=== PATIENT | female | born 1995 | race Caucasian/White ===

== ENCOUNTER 2017-12-19 18:20 | Observation (INO) | payer BC, OTHER ==
[2017-12-19 19:21] VITALS: BMI 26.9
[2017-12-19 19:25] LABS: #Basophils 0.1 thou/uL (0.0-0.2); #Eosinphils 0.1 thou/uL (0.0-0.7); #Lymphocytes 3.5 thou/uL (1.20-3.40); #Neutrophils 10.7 thou/uL (1.40-6.50); %Basophils 0.6 % (0.0-1.0); %Eosinophils 0.6 % (0.0-10.0); %Lymphocytes 22.9 % (21.0-51.0); %Monocytes 6.6 % (0.0-10.0); %Neutrophils 69.2 % (42.0-75.0); Hemoglobin 11.6 g/dL (12.0-16.0); Mean Corpuscular Volume 88.5 fl (81.0-99.0); Mean Platelet Volume 8.6 fL (7.4-10.4); Platelet Count 207 thou/uL (130-400); Red Blood Cell (RBC) Count 3.73 mill/uL (4.20-5.40); White Blood Cell (WBC) Count 15.4 thou/uL (4.8-10.8)
[2017-12-19 19:43] LABS: Bilirubin Negative (Negative); Blood, Urine Negative (Negative); Clarity CLEAR (Clear); Glucose, Urine (Dipstick) Negative (Negative); Leukocyte Negative (Negative); Nitrite Negative (Negative); Protein, Urine (Dipstick) Negative (Neg-Trace); Urobilinogen 0.2 mg/dL (0.2-1.0); pH, Urine 5.5 (5.0-9.0)
[2017-12-19 19:45] LABS: Bacteria/HPF None Seen HPF (None Seen); Hyaline Casts/LPF 0-3 HYALINE CAST LPF (0-3 Hyaline); RBC/HPF None Seen HPF (0-3); Squamous Epithelial 0-3 HPF (0-3); WBC/HPF 0-3 HPF (0-3)
--- NOTE | 2017-12-19 22:01 | MRI ---
PRELIMINARY REPORT BY DR. VASQUEZ: MRI ABDOMEN NONCONTRAST DATE: 12/19/2017 TIME: 9:11 p.m. HISTORY: A 22-year-old female at 21 weeks' gestation with severe right lower quadrant abdominal pain and tenderness, and leukocytosis. Suspected appendicitis. FINDINGS: The study did not include the pelvis. There is a second trimester intrauterine gestation, with the f etus in breech lie, with the spine to the maternal right. I cannot distinguish loops of ileum from potentially dilated appendix adjacent to the cecum. There is mild bilateral hydronephrosis, rig ht greater than left, presumably representing hydronephrosis of . No small bowel dilation. IMPRESSION: 1. I cannot identify the appendix, and therefore, I cannot confirm or exclude acute appendicitis. 2. A final report will be issued, as an addendum to this report, by another radiologist, tomorrow jany loyola. POS: [facility]
[2017-12-19] MEDS: Acetaminophen 325 MG TAB PO PRN (22:20)
[2017-12-20 06:02] LABS: #Basophils 0.1 thou/uL (0.0-0.2); #Eosinphils 0.1 thou/uL (0.0-0.7); #Lymphocytes 3.9 thou/uL (1.20-3.40); #Neutrophils 9.1 thou/uL (1.40-6.50); %Basophils 0.8 % (0.0-1.0); %Eosinophils 0.7 % (0.0-10.0); %Lymphocytes 27.3 % (21.0-51.0); %Monocytes 6.7 % (0.0-10.0); %Neutrophils 64.5 % (42.0-75.0); Hemoglobin 10.8 g/dL (12.0-16.0); Mean Corpuscular HGB CONC 34.9 g/dL (32.0-36.0); Mean Corpuscular Hemoglobin 31.3 pg (27.0-31.0); Mean Corpuscular Volume 89.8 fl (81.0-99.0); Mean Platelet Volume 9.3 fL (7.4-10.4); Platelet Count 179 thou/uL (130-400); Red Blood Cell (RBC) Count 3.44 mill/uL (4.20-5.40); White Blood Cell (WBC) Count 14.1 thou/uL (4.8-10.8)
[2017-12-20 06:06] LABS: Anion Gap 10 mmol/L (10-20); BUN (Urea Nitrogen) 7 mg/dL (7.0-18.7); Calc. Creatinine Clearance 162 mL/min (70-130); Calcium 8.7 mg/dL (7.8-10.44); Carbon Dioxide 24 mmol/L (22-29); Chloride 107 mmol/L (98-107); Estimated GFR-MDRD Greater than 90; Glucose 78 mg/dL (70-105); Potassium 3.5 mmol/L (3.5-5.1); Sodium 137 mmol/L (136-145)
--- NOTE | 2017-12-20 08:12 | HP ---
OBSERVATION ADMISSION NOTE DATE OF SERVICE: 12/19/2017 TIME OF SERVICE: 2145 hours. REASON FOR ADMISSION: Abdominal pain at 21 weeks gestation right lower quadrant suspicious for appen dicitis. HISTORY OF PRESENT ILLNESS: Ms. Sims is a 22-year-old 2, para [address] Thompson at [facility]. She is 21 weeks gestation by stated ANABELA. She reports right lower quadran t pain today that radiates to the back. She has mild anorexia, no nausea or vomiting. She denies fe mary. She denies dysuria. She denies vaginal discharge. 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 PAST MEDICAL HISTORY: C. difficile, scoliosis and early macular degeneration. PAST SURGICAL HISTORY: Significant for laser macular degeneration surgery. ALLERGIES: None. MEDICATIONS: vitamins. SOCIAL HISTORY: Denies tobacco, alcohol, or drug use. FAMILY HISTORY: Noncontributory. REVIEW OF SYSTEMS: Noncontributory. PHYSICAL EXAMINATION: VITAL SIGNS: Temperature 98.5, pulse 83, blood pressure 119/73. HEENT: Within normal limits. LUNGS: Clear to auscultation bilaterally. HEART: Regular rhythm. ABDOMEN: Has bowel sounds in all 4 quadrants. She has discomfort to palpation in the right lower qu adrant and it is fairly point tender. She does not have CVA tenderness. EXTREMITIES: Without clubbing, cyanosis or edema. PELVIC: Vulva is without lesions. Vagina is without discharge. Cervix is closed, long, and high. LABORATORY STUDIES: Cath UA is negative. CBC reveals a white count of 15.4 with 69% neutrophils, 22 % lymphs. MRA of the abdomen was performed. Discussion with radiologist he could not definitively l ocate the appendix and could not rule in or rule out appendicitis. IMPRESSION: Right lower quadrant pain at 21 weeks gestation, suspect differential includes early april endicitis versus round ligament pain. PLAN: We will place the patient in observation and watched overnight, repeat her CBC in the morning and follow serial exams. Plan was discussed with her private OB, Dr. Thompson. She agrees with this plan and will see the patient in the a.m.
[2017-12-20 09:06] LABS: ALT (SGPT) 7 U/L (8-55); AST (SGOT) 11 U/L (5-34); Albumin 3.1 g/dL (3.5-5.0); Alkaline Phosphatase 75 U/L (40-150); Bilirubin, Direct 0.1 mg/dL (0.1-0.3); Bilirubin, Total 0.4 mg/dL (0.2-1.2); Protein, Total 5.8 g/dL (6.0-8.3)
[2017-12-20] MEDS: Acetaminophen 325 MG TAB PO PRN (09:12)
[2017-12-20] MEDS: Lactated Ringer's 1,000 ML IV SCH (09:30)
[2017-12-20] MEDS: Fentanyl 100 MCG/2 ML VIAL SLOW IVP PRN ×2 (09:31→11:38)
--- NOTE | 2017-12-20 09:33 | PRG ---
DATE OF SERVICE: 12/20/2017 TIME OF VISIT: 0830 SUBJECTIVE: The patient reports overnight has had continued severe right lower quadrant pain, consta nt stabbing sensation with radiation to the right flank with some tingling in there. S She feels naus eous, decreased appetite, feels very cold. She has not had a fever and has not vomited. She does fee l movement. She denies any contractions, vaginal bleeding, leakage of fluid. OBJECTIVE: VITAL SIGNS: Temperature max 98.2, pulse 78, respirations 16, pulse ox 100% on room air, blood press ure 97/62. GENERAL: No acute distress. She is wincing in pain and tearful. HEART: Regular rate and rhythm. LUNGS: Clear to auscultation bilaterally. ABDOMEN: Soft and nondistended. Significant tenderness in the right lower quadrant. The fundus is nontender. There are no palpable contractions or masses. The tenderness is more pronounced in the r ight lower back. There is no CVA tenderness bilaterally. There is voluntary guarding. No rebound. EXTREMITIES: No edema, cyanosis or clubbing. LABORATORY DATA: White count 14.1, hemoglobin 10.8, hematocrit 30.9, platelets are 179, slight left shift. Chemistries are normal. LFTs are normal. UA was entirely negative. ASSESSMENT AND PLAN: A 22-year-old G1, P0 at 21 weeks and 4 days with acute onset right lower quadra nt pain of uncertain etiology. There is no evidence of obstetrical reasons for this pain. Her urine is entirely negative essentially ruling out kidney stones and pyelo. Urine culture is pending at th is time. The appendix was evaluated by an abdominal MRI and was not definitively ruling out an acute appendicitis. There is a continued concern for this process and I have started the patient on IV fl uids as well as p.r.n. IV pain meds and if the patient's pain is unrelieved then will order CT later today and consult General Surgery. Plan of care was discussed with the patient, she understands. We will do daily FHTs by Doppler. Patient's blood type is O negative of note.
[2017-12-20] MEDS: Ondansetron ODT 4 MG TAB PO PRN (12:02)
[2017-12-20] MEDS ORDERED: Acetaminophen/Codeine 30-300mg Tablet PO PRN (18:11)
[2017-12-20] MEDS: Acetaminophen/Codeine 30-300mg Tablet PO PRN ×2 (19:00→22:58)
[2017-12-20] MEDS ORDERED: Calcium Carbonate 500 MG ChewTAB PO PRN (22:34)
[2017-12-20] MEDS ORDERED: Calcium Carbonate 500 MG ChewTAB PO SCH (22:45)
[2017-12-21] MEDS: Lactated Ringer's 1,000 ML IV SCH ×2 (03:57→06:27)
[2017-12-21] MEDS: Acetaminophen/Codeine 30-300mg Tablet PO PRN ×3 (04:15→14:17)
[2017-12-21] MEDS: Ondansetron ODT 4 MG TAB PO PRN (08:44)
[2017-12-21] MEDS ORDERED: Sodium Chloride 0.9% 10 ML ONE (08:52)
--- NOTE | 2017-12-21 11:24 | ULT ---
RIGHT UPPER QUADRANT ULTRASOUND: Date: 12-21-17 Comparison: None. History: Right flank pain, right upper quadrant pain, nausea. Technique: Multiplanar grayscale sonographic imaging of the right upper quadrant provided. 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 The imaged pancreatic parenchyma is unremarkable. N O focal liver lesion or intrahepatic biliary dilatation is seen. No gallbladder wall thickening or pericholecystic fluid. No gallstones are noted. The common bile duct measure 2 mm, within normal limits. The right kidney measures 9.8 cm in craniocaudal dimension. No significant right sided hydronephrosis is seen. IMPRESSION: No evidence for cholelithiasis, cholecystitis or biliary dilatation. POS: [facility]
[2017-12-21 15:19] VITALS: BP 115/54; TEMP 98.1
--- NOTE | 2017-12-21 17:11 | DIS ---
DATE OF ADMISSION: 12/19/2017 DATE OF DISCHARGE: 12/21/2017 ADMISSION DIAGNOSES: 1. Intrauterine at 21 weeks. 2. Severe right lower quadrant pain. 3. Elevated white count. DISCHARGE DIAGNOSES: 1. Intrauterine at 21 weeks. 2. Severe right lower quadrant pain. 3. Elevated white count. 4. Suspected round ligament pain. DISCHARGE CONDITION: stable. CONSULTATIONS: None. ATTENDING: Leslee Thompson M.D. CONSULTATION: None. PROCEDURE: On 12/19/2017, patient underwent abdominal MRI. On 12/21/2017, patient underwent a right upper quadrant ultrasound. HISTORY OF PRESENT ILLNESS: Please see previously dictated H&P. HOSPITAL COURSE: A 22-year-old G1, P0, presented to the hospital with acute onset, constant, stabbin g right lower quadrant pain, had marked tenderness on exam and a white count of 15. She underwent an abdominal MRI which was initially inconclusive; however, on addendum and reread by radiologist, appe ndix was visualized and normal appearing. The kidneys were normal with the exception of mild right-s ided hydronephrosis. There were no kidney stones. No other inflammatory changes of the GI tract and no adnexal masses. She did not have any symptoms of labor. Her cervix was closed. She had no vaginal bleeding. She was admitted for observation, pain control, and further evaluation. She r eceived LR and IV fentanyl as needed for pain. This did help her pain. She was slightly nauseated, so was given Zofran, which helped the nausea. She was able to tolerate a diet; however, the pain rem ained the same. Basically, reoccurring once the pain medicines had worn off. She was able to ambula te and tolerate a diet. She had no progression of her symptoms, but just continued pain in the same location that radiated to the right lower back. This was worse with standing. The decision was made on hospital day #3 to do a right upper quadrant ultrasound since the liver and gallbladder had not b een evaluated and the patient was also having symptoms of dyspepsia. This ultrasound was normal. Th e patient had no acute signs of peritonitis. Her vital signs remained within normal limits and her w stephanie count trended slightly downward to 14 on hospital day 2 secondary to her negative workup and con trolled pain with p.o. Tylenol 3, she was dispositioned for discharge with rest and hydration at home and follow up as an outpatient in 1 week with me. She has a urine culture that is preliminarily neg ative and she is given warnings to come back to the hospital if her pain progresses or if she develop s any additional symptoms. Her final urine culture is pending at the time of discharge.
== END 2017-12-21 14:20 | disposition home or self-care (01) ==
LOC: LAB 18:20 → 3SE 12-20 00:45
PROVIDERS: ADMIT Obstetrics & Gynecology; ATTEND Obstetrics & Gynecology
DX: O99.89 Other specified diseases and conditions complicating pregnancy, childbirth and the puerperium (principal); O99.112 Other diseases of the blood and blood-forming organs and certain disorders involving the immune mechanism complicating pregnancy, second trimester; R10.31 Right lower quadrant pain; Z3A.21 21 weeks gestation of pregnancy
CPT/HCPCS: 36415; 51701; 74181; 76705; 80048; 80076; 81001; 85025; 87086; 96374; 96376; 99285; A4216; G0378; J3010; Q0162

== ENCOUNTER 2018-03-02 14:54 | Day surgery (SDC) | payer BC ==
[2018-03-02] MEDS ORDERED: Lactated Ringer's 1,000 ML IV SCH (16:00)
--- NOTE | 2018-03-02 16:34 | HP ---
DATE OF ADMISSION: 03/02/2018 LOCATION: Labor and Delivery triage. TIME OF EVALUATION: Roughly 1600 hours. This is a patient of Dr. Leslee Thompson. REASON FOR EVALUATION: Pelvic pressure at 31 weeks and 6 days. HISTORY OF PRESENT ILLNESS: In brief, this is a 22-year-old G2, P0 with a due date of 04/28, placing her at 31 weeks' gestation and [address] Thompson for care. She has a complaint of vaginal pressure and possible contractions, but she denies leakage of fluid or vaginal bleeding. She states that she has good movement. She is unable to state if it is constant pressure or s ymptoms compatible with contractions. She has no fever or dysuria. She denies recent intercourse in the last 48 hours. REVIEW OF SYSTEMS: Complete review of systems was checked and is otherwise negative unless specified in the HPI. OB HISTORY: She had an early first-trimester miscarriage in the past. PAST SURGICAL HISTORY: Includes carpal tunnel surgery and wisdom teeth. PAST MEDICAL HISTORY: Includes cholelithiasis, but she has not had a cholecystectomy yet. ALLERGIES: MORPHINE. SOCIAL HISTORY: Otherwise, negative. PHYSICAL EXAMINATION: VITAL SIGNS: Blood pressure is 119/73, pulse is 120, respirations are 18, and O2 sat is 100% clinica lly. GENERAL: Grossly, she is in no acute distress. ABDOMEN: Soft and nontender, without palpable contractions. GENITOURINARY: Perineal inspection does not reveal any lakia bleeding or gross evidence of rupture. MONITOR ASSESSMENT: heart tones are category 1 in the 140s to 150s with moderate variabi lity and no decelerations. There are accelerations. Tocodynamometer does not show contraction kenia chinchilla. INTERVENTIONS ORDERED: 1. I have ordered a cervical length ultrasound, as she is 31 weeks and 6 days to assess cervical mauro gth. 2. I have also ordered a fibronectin as part of the evaluation for threatened labor. 3. I have also ordered 1 liter of lactated ringer due to [id number] tachycardia of unknown matthew ology (asymptomatic). ASSESSMENT: This is a patient, who is a G2, P0 at 31 weeks and 6 days with threatened labor/ pelvic pressure. PLAN: 1. Check cervical length ultrasound. 2. FFN. 3. One-liter hydration. 4. Monitor the patient's pulse. 5. I will also order a TSH, as a screen for the maternal tachycardia. 6. Continue continuous monitoring for now.
--- NOTE | 2018-03-02 16:51 | PDOC.EVN ---
Event Note - Event Note Event Note: Jameel cervical length was 3.7 I told her that FFN will be sent to help as well, although even if positive, the algorithm defaults to cervical length and since greater than 2.5...would be ok for discharge. We will get it for record completeness. TSH pending. Cervical length implication discussed with her as low prob of PTL at this point. H-
--- NOTE | 2018-03-02 16:53 | ULT ---
ULTRASOUND OB LIMITED 03/02/18 HISTORY: 31 weeks threatened labor. Evaluate cervical length. COMPARISON: MRI of the abdomen 12/19/17. FINDINGS: real time tapia scale and color evaluation of the gravid uterus was performed. heart rate documented at 140 beats per minute. Cervical length is 3.8 cm. IMPRESSION: Cervical length of 3.8 cm. POS: [facility]
[2018-03-02 17:35] LABS: FFN Internal QC Analyzer PASS (PASS); FFN Internal QC Cassette PASS (PASS); Fetal Fibronectin Negative (Negative)
--- NOTE | 2018-03-02 17:48 | PDOC.EVN ---
Event Note - Event Note Event Note: FFN is negative TSH to folllow up her MD
[2018-03-02 17:58] VITALS: BMI 30.7
== END 2018-03-02 18:16 | disposition home health service (06) ==
LOC: L&D/OP 14:54
PROVIDERS: ATTEND Student in an Organized Health Care Education/Training Program
DX: O26.893 Other specified pregnancy related conditions, third trimester (principal); Z3A.31 31 weeks gestation of pregnancy
CPT/HCPCS: 36415; 76815; 82731; 84443; 96360; 99283

== ENCOUNTER 2018-03-20 19:08 | Day surgery (SDC) | payer BC ==
[2018-03-20 19:36] VITALS: BMI 29.0
--- NOTE | 2018-03-20 20:11 | PDOC.LDHP ---
Labor and Delivery H&P Chief complaint: contractions HPI: 22 y/o at 34w3d, patient of Dr. Thompson, presents with ctx all day today. Patient has had issues with contractions for a long time and has been on procardia tid. Had sex this morning. Reports that she drinks a lot of water but partner disagrees. Denies VB, LOF, or decreased FM. ROS neg for HEENT, cv, pulm, gi, gu, neuro, psych, skin, musculoskeletal or constitutional symptoms other than mentioned above. OB History Details: 1 prior SAB Current complications: none Past Medical History: IBS Current medications: pre-raghav vitamins Previous surgical history: other (carpal tunnel) Allergies/Adverse Reactions: Allergies Allergy/AdvReac Type Severity Reaction Status Date / Time morphine Allergy Severe Anaphylaxis Verified 03/20/18 19:33 Social history: none - Physical Exam Vital signs reviewed and normal: yes General: NAD, resting Lungs: nonlabored breathing Abdomen: gravid Extremeties: no edema FHT: category 1 (150s, mod variability, + accels, no decels) Ramey contractions every: irregular q4-10 mins - Vaginal Exam cm dilated: 0 (posterior) Effacement: 0% Station: -3 - Assessment 22 y/o at 34w1d with no e/o PTL. status reassuring with reactive NST. - Plan -: D/c home with precautions. Advised to keep all appointments and stay well hydrated.
== END 2018-03-20 20:30 | disposition home or self-care (01) ==
LOC: L&D/OP 19:08
PROVIDERS: ATTEND Student in an Organized Health Care Education/Training Program
DX: O47.03 False labor before 37 completed weeks of gestation, third trimester (principal); Z3A.34 34 weeks gestation of pregnancy
CPT/HCPCS: 99282

== ENCOUNTER 2018-04-02 20:21 | Day surgery (SDC) | payer BC ==
[2018-04-02 21:16] VITALS: BP 121/83; TEMP 97.9
[2018-04-02 22:29] LABS: Bilirubin Negative (Negative); Blood, Urine Negative (Negative); Clarity CLEAR (Clear); Glucose, Urine (Dipstick) Negative (Negative); Leukocyte Negative (Negative); Nitrite Negative (Negative); Protein, Urine (Dipstick) Negative (Neg-Trace); Specific Gravity, Urine 1.009 (1.002-1.036); Urobilinogen 0.2 mg/dL (0.2-1.0)
[2018-04-02 22:30] LABS: Bacteria/HPF None Seen HPF (None Seen); Hyaline Casts/LPF 0-3 HYALINE CAST LPF (0-3 Hyaline); Pathc Cast-AUWi Flag 0.72 (0-2.49); RBC/HPF 0-3 HPF (0-3); Squamous Epithelial 0-3 HPF (0-3); WBC/HPF 0-3 HPF (0-3)
--- NOTE | 2018-04-02 23:59 | PRG ---
OB ER ENCOUNTER DATE OF SERVICE: 04/02/2018 PRIMARY CONTINUOUS CRUSHER OPERATOR: Leslee Thompson M.D. CHIEF COMPLAINT: Dizziness and headache. HISTORY OF PRESENT ILLNESS: The patient is a 22-year-old G1, P0 female with an intrauterine pregnanc y at 36 weeks and 2 days who is reporting with paroxysmal headache and dizziness. She reports that i t is comes on suddenly and goes away. The patient reports that her headache has gotten better and st ill feels a little bit dizzy off and on. The patient reports that she eats frequent small meals and hydrates well. The patient was seen last by her primary OB and was 1 cm dilated. The patie nt reports back pain, suprapubic pain and crampiness at times. The patient denies fever, illness, fa ll, chest pain. She reports some baseline shortness of breath from that she attributes to the pregna ncy. The patient has had some nausea and rare vomiting, reports some diarrhea that is not severe. D enies any rashes. Denies vaginal bleeding or leakage of fluid. Reports urinary frequency, but denie s urgency. Denies muscle weakness. The patient reports earlier in her , she would have the dizziness from getting up too quickly. PAST MEDICAL HISTORY: The patient reports anemia with this . PAST SURGICAL HISTORY: She has had her wisdom teeth removed and carpal tunnel release. OBSTETRIC HISTORY: This is her first . ALLERGIES: MORPHINE. SOCIAL HISTORY: Denies drug, alcohol or tobacco use. OB LABS: One hour Glucola 104. Blood type O negative, antibody screen is negative. She is rubella immune, hepatitis B surface antigen in the first trimester is nonreactive. RPR in the first trimeste r is nonreactive. HIV in the first trimester is nonreactive, GC and chlamydia are negative. REVIEW OF SYSTEMS: Per HPI. PHYSICAL EXAMINATION: VITAL SIGNS: Blood pressure 121/83, heart rate of 107, respiratory rate of 16, satting 98% on room a ir, temperature 97.9. GENERAL: She appears to be in no acute distress. She is alert and oriented, cooperative and pleasan t to interact with. HEENT: Head is normocephalic, atraumatic. LUNGS: Clear to auscultation bilaterally. HEART: Regular rate and rhythm. ABDOMEN: Soft and gravid, but tender. She has suprapubic tenderness. She is sensitive to the baby' s movements which causes her pain. EXTREMITIES: Nontender with some mild edema. GENITOURINARY: Has been deferred. heart tracing shows baseline in the 140s with moderate long-term variability, positive 15 x 15 accelerations, no decelerations. Tocometer shows some irritability. The patient does feel some of t hem, but not regularly. Urinalysis clean catch is pending. ASSESSMENT AND PLAN: The patient is a 22-year-old G1, P0 female with an intrauterine at 36 weeks and 2 days who is presenting with some headache and blurry vision. The headache has spontaneo usly resolved or improved. The blurry vision comes and goes spontaneously. Blood pressures are well within normal limits. I have no concerns at this time that she has a blood pressure related disorde r, symptoms may be just part of a physiologic delay in her circulatory system as the patient describe s dizziness with standing frequently during the middle part of her . The patient has been c ounseled to hydrate well, eat frequent meals with protein and to consider increasing her intake of so dium and potassium and magnesium as the patient drinks a lot of bottled water. The patient has an ap pointment with her primary OB next , which we have encouraged that she keep. Should her urin alysis come back with some evidence of urinary tract infection, we will be treating her appropriately likely with Keflex given the proximity to possible delivery, 500 mg to be taken twice a day for the next 7 days. The patient otherwise will be discharged to home with instructions to follow up with Dr Evangelina Thompson.
== END 2018-04-02 23:03 | disposition home or self-care (01) ==
LOC: L&D/OP 20:21
PROVIDERS: ATTEND Student in an Organized Health Care Education/Training Program
DX: O99.89 Other specified diseases and conditions complicating pregnancy, childbirth and the puerperium (principal); R42 Dizziness and giddiness; R51 Headache; R10.2 Pelvic and perineal pain; Z3A.36 36 weeks gestation of pregnancy; Z79.899 Other long term (current) drug therapy; Z88.5 Allergy status to narcotic agent
CPT/HCPCS: 81001; 99283

== ENCOUNTER 2018-04-21 00:05 | Inpatient (IN) | payer BC ==
[2018-04-21] MEDS ORDERED: Misoprostol 200 MCG TAB PR PRN (01:28)
[2018-04-21] MEDS ORDERED: Diphenoxylate HCl/Atropine Tablet PO PRN (01:28)
[2018-04-21] MEDS ORDERED: Butorphanol Tartrate 1 MG/ML VIAL SLOW IVP PRN (01:28)
[2018-04-21] MEDS ORDERED: Ondansetron PF 4 MG/2 ML Vial IVP PRN ×2 (01:28→11:58)
[2018-04-21] MEDS ORDERED: Methylergonovine 0.2 MG/ML VIAL IM PRN (01:28)
[2018-04-21] MEDS ORDERED: Ibuprofen 800 MG TAB PO PRN (01:28)
[2018-04-21] MEDS ORDERED: Promethazine HCl 25 MG/ML VIAL IM PRN ×2 (01:28→11:58)
[2018-04-21] MEDS ORDERED: Acetaminophen 500 MG TAB PO PRN (01:28)
[2018-04-21] MEDS ORDERED: NS w/ Oxytocin 10 units 500 ML IV SCH (01:28)
[2018-04-21] MEDS ORDERED: Lidocaine 1% (PF) 30 ML VIAL SC PRN (01:28)
[2018-04-21] MEDS ORDERED: HYDROcodone/Acetaminophen 5/325 mg Tablet PO PRN (01:28)
[2018-04-21] MEDS ORDERED: Carboprost 250 MCG/ML AMP IM PRN (01:28)
[2018-04-21 01:44] VITALS: BMI 31.3
[2018-04-21] MEDS: Lactated Ringer's 1,000 ML IV SCH ×3 (01:58→16:54)
[2018-04-21 02:13] LABS: Hemoglobin 11.5 g/dL (12.0-16.0); Mean Corpuscular HGB CONC 33.2 g/dL (32.0-36.0); Mean Corpuscular Hemoglobin 28.9 pg (27.0-31.0); Mean Corpuscular Volume 87.2 fL (78.0-98.0); Mean Platelet Volume 9.5 fL (7.4-10.4); Platelet Count 242 thou/uL (130-400); Red Blood Cell (RBC) Count 3.97 mill/uL (4.20-5.40); White Blood Cell (WBC) Count 17.3 thou/uL (4.8-10.8)
[2018-04-21] MEDS: Misoprostol 100 MCG TAB VAG SCH ×3 (02:26→16:55)
[2018-04-21 02:52] LABS: HBSAg Index 0.23 S/CO (0-0.99); Hep B Surf Ag Non-Reactive S/CO (NonReactive)
[2018-04-21 04:16] LABS: Syphilis Antibody Nonreactive (Nonreactive); Syphilis Antibody Index 0.09 S/CO (<1.00 Non-Reactive)
--- NOTE | 2018-04-21 08:03 | PDOC.LDHP ---
Labor and Delivery H&P Chief complaint: scheduled induction HPI: 22yo at 39w0d by LMP for elective IOL Current gestational age (weeks): 39 Due date: 04/28/18 Dating criteria: last menstrual period Grav: 1 Para: 0 Current complications: none Abnormal US findings: No Current medications: pre- vitamins Previous surgical history: other (wisdom teeth, carpal tunnel release) Allergies/Adverse Reactions: Allergies Allergy/AdvReac Type Severity Reaction Status Date / Time morphine Allergy Severe Anaphylaxis Verified 04/21/18 01:37 Social history: none - Physical Exam Vital signs reviewed and normal: yes General: NAD Heart: RRR Lungs: CTAB Abdomen: gravid Extremeties: no edema FHT: category 1 [place] contractions every: 2-3min - Vaginal Exam cm dilated: 2 Effacement: 50% Station: -2 - OB Labs Blood type: O RH: negative Antibody Screen: negative HIV: negative RPR: negative HEPSAg: negative 1 hour GCT: negative GBS: negative Urine drug screen: negative Rubella: immune - Assessment L&D Assessment: elective induction at term - Plan Plan: admit to L&D, cervical ripening, labor augmentation if indicated, informed consent obtained, anesthesia consult for pain management
[2018-04-21] MEDS ORDERED: Fentanyl 100 MCG/2 ML VIAL SLOW IVP PRN (08:15)
[2018-04-21] MEDS ORDERED: Fentanyl 4 mcg/Bup 0.1% Cadd 100 ML ONE ×2 (11:17→16:24)
[2018-04-21] MEDS ORDERED: ePHEDrine/0.9% NaCl/PF SYRINGE 50 mg/10 ml SLOW IVP PRN (11:58)
[2018-04-21] MEDS ORDERED: Naloxone HCl 0.4 mg/ml Vial IVP PRN ×2 (11:58)
[2018-04-21] MEDS ORDERED: Lactated Ringer's 500 ML IV PRN (11:58)
[2018-04-21] MEDS ORDERED: Acetaminophen 325 MG TAB PO PRN (11:58)
[2018-04-21] MEDS ORDERED: Eucerin (Mineral Oil/Petrolatum,White) 30 gm Jar TOP PRN (11:58)
[2018-04-21] MEDS ORDERED: diphenhydrAMINE 50 MG/ML VIAL IVP PRN (11:58)
[2018-04-21] MEDS ORDERED: Communication Order-Pharmacy FS SCH (12:00)
--- NOTE | 2018-04-21 13:27 | PDOC.LDPN ---
Labor & Delivery Progress Note - Subjective Subjective: comfortable - Objective Vital signs reviewed and normal: yes General: NAD Uterine fundus: non tender Dilation: 4 Effacement: 75% Station: -2 FHT: category 1, early decelerations [place] contractions every: q3min Plan: labor augmentation
[2018-04-21] MEDS: NS / Oxytocin 40 units/1000ml 1,000 ML IV PRN ×2 (19:55→21:30)
--- NOTE | 2018-04-21 20:07 | PDOC.OPDEL ---
OB Operative/Delivery Note Delivery Dr/Surgeon: Donna Assist: n/a Pre-Delivery Diagnosis: elective induction Procedure/Post Delivery Dx: spontaneous vaginal delivery Weeks gestation: 39 Anesthesia: epidural - Findings A Sex: female - 1 min: 8 - 5 min: 9 - Additional Findings/Plan Placenta delivered: spontaneous Repaired Obstetrical Laceration: 1st degree Estimated blood loss: 200, qbl pending Post delivery plan: routine recovery
[2018-04-22] MEDS: Misoprostol 100 MCG TAB VAG SCH
[2018-04-22] MEDS ORDERED: NS / Oxytocin 40 units/1000ml 1,000 ML IV SCH (00:23)
[2018-04-22] MEDS ORDERED: Lanolin Ointment 7 GM TUBE TOP PRN (00:23)
[2018-04-22] MEDS ORDERED: Adacel (T-DAP) 0.5 ML VIAL IM ONE (00:23)
[2018-04-22] MEDS ORDERED: diphenhydrAMINE 25 MG CAP PO PRN (00:23)
[2018-04-22] MEDS ORDERED: Preparation H Ointment 28 GM TUBE PR PRN (00:23)
[2018-04-22] MEDS ORDERED: HYDROcodone/Acetaminophen 5/325 mg Tablet PO PRN ×2 (00:23)
[2018-04-22] MEDS ORDERED: Ondansetron PF 4 MG/2 ML Vial IVP PRN (00:23)
[2018-04-22] MEDS ORDERED: Benzocaine/Menthol 20-0.5% 60 ML CAN TOP PRN (00:23)
[2018-04-22] MEDS ORDERED: Bisacodyl 10 MG SUPP PR PRN (00:23)
[2018-04-22] MEDS ORDERED: Milk Of Magnesia 30 ML UDCUP PO PRN (00:23)
[2018-04-22] MEDS ORDERED: Sodium Chloride 0.9% 10 ML ONE (03:22)
[2018-04-22] MEDS: Ibuprofen 800 MG TAB PO SCH ×3 (07:30→21:53)
--- NOTE | 2018-04-22 08:05 | PDOC.PP ---
Post Progress Note Post Day #: 1 Subjective: Doing well, uncomfortable with feng. Otherwise without complaints. PO intake tolerated: yes Flatus: yes Ambulation: no Vital Signs (12 hours) Temp Pulse Resp BP Pulse Ox 04/22/18 07:32 98.0 F 97 20 110/67 99 04/22/18 04:21 98.3 F 110 H 20 129/82 04/22/18 01:27 98.5 F 104 H 18 114/65 97 04/22/18 00:25 97.7 F 114 H 18 114/65 97 04/21/18 23:05 98.4 F 107 H 20 122/69 99 Weight Weight 200 lb - Physical Examination General: NAD Respiratory: non-labored breathing Abdominal: lochia (wnl), no distention, appropriately TTP Fundus firm & at: U-3 Extremities: negative homans (B) Neurological: no gross focal deficits Psychiatric: A&Ox3, normal affect Result Diagrams: 04/21/18 01:52 Additional Labs: Post Labs Blood Type O NEGATIVE 04/21/18 01:52 Hep Bs Antigen Non-Reactive S/CO (NonReactive) 04/21/18 01:52 (1) (spontaneous vaginal delivery) Code(s): O80 - ENCOUNTER FOR FULL-TERM UNCOMPLICATED DELIVERY Status: Acute - Assessment/Plan Continue routine management. D/c feng and encourage ambulation. Anticipate d/c tomorrow.
[2018-04-22] MEDS: Ferrous Sulfate 325 MG TAB PO SCH ×2 (14:16→18:47)
[2018-04-22] MEDS: Docusate Calcium (SURFAK) 240 MG CAP PO SCH ×2 (14:16→21:53)
[2018-04-22] MEDS: Prenatal Vitamin 1 TAB PO SCH (14:16)
--- NOTE | 2018-04-23 00:15 | PDOC.PP ---
Post Progress Note Post Day #: 2 Subjective: Doing well PO intake tolerated: yes Flatus: yes Ambulation: yes Vital Signs (12 hours) Temp Pulse Resp BP 04/22/18 20:45 98.2 F 91 16 124/80 04/22/18 18:23 98.2 F 94 20 124/81 Weight Weight 200 lb - Physical Examination General: NAD Cardiovascular: no m/r/g, RRR Abdominal: + bowel sounds, lochia, no distention, appropriately TTP Extremities: negative homans (B) Neurological: no gross focal deficits Psychiatric: A&Ox3, normal affect Result Diagrams: 04/21/18 01:52 Additional Labs: Post Labs Blood Type O NEGATIVE 04/21/18 01:52 Hep Bs Antigen Non-Reactive S/CO (NonReactive) 04/21/18 01:52 (1) (spontaneous vaginal delivery) Code(s): O80 - ENCOUNTER FOR FULL-TERM UNCOMPLICATED DELIVERY Status: Acute - Assessment/Plan PPD2 doing well; patient delievered on 04/21 at 2000. Plan: 1. patient seen and care reviewed 2. I discussed DC to home later today 04/23 at around noon, pending baby bili- level 3. Motrin PRN 4. No evidence PP complication at this time Plan for DC later today around 12 noon or so
--- NOTE | 2018-04-23 00:16 | PDOC.EVN ---
Event Note - Event Note Event Note: DISCHARGE NOTE Patient S/P , uncomplicated PP course. Discharge sheet completed in the physical chart.
[2018-04-23] MEDS: Ibuprofen 800 MG TAB PO SCH (05:44)
[2018-04-23] MEDS: Ferrous Sulfate 325 MG TAB PO SCH (07:37)
[2018-04-23 08:35] VITALS: BP 125/71; TEMP 97.5
[2018-04-23] MEDS: Prenatal Vitamin 1 TAB PO SCH (09:31)
[2018-04-23] MEDS: Docusate Calcium (SURFAK) 240 MG CAP PO SCH (09:31)
== END 2018-04-23 12:10 | disposition home or self-care (01) | DRG 807 ==
LOC: L&D 01:03 → 3SW 04-22 00:14
PROVIDERS: ADMIT Student in an Organized Health Care Education/Training Program; ATTEND Student in an Organized Health Care Education/Training Program
PROC: 10E0XZZ Delivery of Products of Conception, External Approach (ICD-10-PCS; principal; 2018-04-21)
PROC: 0HQ9XZZ Repair Perineum Skin, External Approach (ICD-10-PCS; 2018-04-21)
PROC: 3E033VJ Introduction of Other Hormone into Peripheral Vein, Percutaneous Approach (ICD-10-PCS; 2018-04-21)
PROC: 10907ZC Drainage of Amniotic Fluid, Therapeutic from Products of Conception, Via Natural or Artificial Opening (ICD-10-PCS; 2018-04-21)
DX: O70.0 First degree perineal laceration during delivery (principal); Z37.0 Single live birth; Z3A.39 39 weeks gestation of pregnancy
CPT/HCPCS: 36415; 51702; 76815; 85027; 85461; 86780; 86850; 86900; 86901; 87340; 90384; 96372; J2001; J3010

== ENCOUNTER 2019-05-29 21:19 | Day surgery (SDC) | payer BC ==
[2019-05-29 21:51] VITALS: BMI 30.5
[2019-05-29 22:31] LABS: Bacteria/HPF None Seen HPF (None Seen); Bilirubin Negative (Negative); Blood, Urine Negative (Negative); Clarity Clear (Clear); Glucose, Urine (Dipstick) Normal (Negative); Leukocyte 75 Leu/uL (Negative); Nitrite Negative (Negative); Protein, Urine (Dipstick) Negative (Neg-Trace); RBC/HPF 0-3 HPF (0-3); Squamous Epithelial 0-3 HPF (0-3); Urobilinogen Normal mg/dL (Less than 2); WBC/HPF 0-3 HPF (0-3)
[2019-05-29 22:41] LABS: FFN Internal QC Analyzer PASS (PASS); FFN Internal QC Cassette PASS (PASS); Fetal Fibronectin Negative (Negative)
--- NOTE | 2019-05-30 06:52 | SS ---
DATE OF ADMISSION: 05/29/2019 DATE OF DISCHARGE: 05/29/2019 REGULAR PHYSICIAN: Leslee Thompson MD. EVALUATING PHYSICIAN: Lucio Arredondo MD. CHIEF COMPLAINT: Cramping at home. HISTORY OF PRESENT ILLNESS: Ms. Sims is a 23-year-old white G3, P1, AB1 with an estimated date of confinement of who presents complaining of cramping at home. She denies ruptured membranes or vaginal bleeding. Her care has been with Dr. Thompson and has been reportedly uncomplicated. PAST OBSTETRICAL HISTORY: Includes one vaginal delivery at 39 weeks and one very early miscarriage, not requiring D and C. PAST MEDICAL HISTORY: Polycystic ovarian syndrome. PAST SURGICAL HISTORY: Carpal tunnel repair. CURRENT MEDICATIONS: vitamins. ALLERGIES: MORPHINE AND SHELLFISH. SOCIAL HISTORY: Denies tobacco, alcohol, or drug use. FAMILY HISTORY: Unremarkable. REVIEW OF SYSTEMS: Denies nausea, vomiting, fever, chills, ruptured membranes, or vaginal bleeding. PHYSICAL EXAMINATION: VITAL SIGNS: In triage, her vital signs are stable and she is afebrile. GENERAL: She is pleasant, in no distress. ABDOMEN: Soft, nontender, and gravid. PELVIC: By a Labor nurse shows the cervix to be closed and long. fibronectin obtained prior to this returns negative. heart rate tracing is stable. There are no decelerations. Irritability seen. LABORATORY STUDIES: Urinalysis returns with a specific gravity of 1.019 with negative protein, negative ketones, negative blood, negative nitrites, positive leukocyte esterase, but on microscopic there is 0-3 rbc's, 0-3 wbc's with no bacteria seen. ASSESSMENT: 1. 33-week intrauterine . 2. No evidence of labor at this time. PLAN: The patient will be dismissed to home. labor precautions were reviewed with her in detail. She states that she has a followup appointment with Dr. Thompson in the next of couple weeks. Job ID: [id number]
== END 2019-05-29 23:16 | disposition home or self-care (01) ==
LOC: L&D/OP 21:19
PROVIDERS: ATTEND Student in an Organized Health Care Education/Training Program
DX: O99.89 Other specified diseases and conditions complicating pregnancy, childbirth and the puerperium (principal); R10.9 Unspecified abdominal pain; O09.293 Supervision of pregnancy with other poor reproductive or obstetric history, third trimester; Z3A.33 33 weeks gestation of pregnancy; Z88.5 Allergy status to narcotic agent; Z91.013 Allergy to seafood
CPT/HCPCS: 81003; 81015; 82731; 99284

== ENCOUNTER 2019-06-15 16:09 | Day surgery (SDC) | payer BC ==
[2019-06-15 17:00] VITALS: BP 121/74; TEMP 98.2; BMI 31.3
[2019-06-15 17:04] LABS: Amnisure Test No Membranes Rupture (No Rupture)
[2019-06-15 17:05] LABS: Amnisure Internal Control QC ACCEPTABLE (ACCEPTABLE)
[2019-06-15] MEDS ORDERED: hydrALAZINE 20 MG/ML VIAL SLOW IVP PRN (18:29)
--- NOTE | 2019-06-15 19:08 | PRG ---
DATE OF SERVICE: 06/15/2019 PRIMARY OB: Dr. Leslee Thompson. CHIEF COMPLAINT: Leakage of fluid. HISTORY OF PRESENT ILLNESS: The patient is a 23-year-old, G3, P1 female with an intrauterine at 35 weeks and 6 days, presenting today after reporting leakage of fluid that she experienced while standing. She felt that her underclothes suddenly got wet. Initially, she thought it was the baby kicking her bladder, but then continued to feel like she had some leaking after that time that did not stop. The patient reports that it is minimal, but still present. She denies any uterine contractions of concern. She states she has been having contractions off and on for some time now that she has been told she has a "irritable uterus." The patient denies any vaginal bleeding. She denies any headache, fever, chest pain, shortness of breath, trauma, nausea, vomiting, diarrhea, constipation, hip problems, knee problems, or muscle weakness. Denies any new rashes, urinary urgency or frequency. PAST MEDICAL HISTORY: IBS, scoliosis, anxiety, depression, anemia and PCOS, migraines. PAST SURGICAL HISTORY: She has had carpal tunnel release on her right hand. ALLERGIES: MORPHINE AND SHELLFISH. MEDICATIONS: vitamins. SOCIAL HISTORY: Denies drug, alcohol, or tobacco use. OB LABORATORY DATA: Unavailable at time of dictation. REVIEW OF SYSTEMS: Per HPI. PHYSICAL EXAMINATION: VITAL SIGNS: Blood pressure 121/74, heart rate of 105, temperature 98.2, respiratory rate of 16. GENERAL: She appears to be in no acute distress. She is alert, oriented, cooperative, and pleasant to interact with. HEAD: Normocephalic, atraumatic. LUNGS: Clear to auscultation bilaterally. HEART: Has a regular rate and rhythm. ABDOMEN: Gravid, soft, nontender. EXTREMITIES: Nontender, nonedematous. : There is no pulling visible on sterile speculum exam. Vulva without masses , lesions, or erythema. Vagina is moist. She does have a little more discharge present of a consistency different than typical. VPIII was collected. LABORATORY DATA: heart tracing shows the fetus with a baseline in the 150s with moderate long-term variability, positive 15 x 15 accelerations, no decelerations. She has irritability seen on the monitor that she does feel on occasion, but is not concerned. AmniSure test was performed and is negative. VPIII was performed and is pending. ASSESSMENT AND PLAN: The patient is a 23-year-old, G3, P1 female with an intrauterine at 35 weeks and 6 days, presenting with leakage of fluid. There is no evidence of rupture of membranes. VPIII is pending at this time. She has a fetus that has a category 1 tracing and reactive NST. The patient has been given reassurance and is being discharged to home. VPIII results will be available later in which we have asked that she call back for. The patient has been counseled to follow up with her primary OB as scheduled. VP3 + for bv. RX sent and pt updated Job ID: [id number] MTDD
== END 2019-06-15 18:00 | disposition home health service (06) ==
LOC: L&D/OP 16:09
PROVIDERS: ATTEND Student in an Organized Health Care Education/Training Program
DX: O99.89 Other specified diseases and conditions complicating pregnancy, childbirth and the puerperium (principal); N89.8 Other specified noninflammatory disorders of vagina; O99.613 Diseases of the digestive system complicating pregnancy, third trimester; K58.9 Irritable bowel syndrome, unspecified; Z3A.35 35 weeks gestation of pregnancy; Z88.5 Allergy status to narcotic agent; Z91.013 Allergy to seafood
CPT/HCPCS: 84112; 87480; 87510; 87660

== ENCOUNTER 2019-07-07 05:30 | Inpatient (IN) | payer BC ==
[2019-07-07] MEDS: Lactated Ringer's 1,000 ML IV SCH ×3 (08:56→14:48)
[2019-07-07] MEDS ORDERED: NS / Oxytocin 40 units/1000ml 1,000 ML IV PRN (08:58)
[2019-07-07] MEDS ORDERED: hydrALAZINE 20 MG/ML VIAL SLOW IVP PRN ×2 (08:58→18:56)
[2019-07-07] MEDS ORDERED: Promethazine HCl 25 MG/ML VIAL IM PRN ×3 (08:58→18:56)
[2019-07-07] MEDS ORDERED: HYDROcodone/Acetaminophen 5/325 mg Tablet PO PRN ×3 (08:58→18:56)
[2019-07-07] MEDS ORDERED: Misoprostol 200 MCG TAB PR PRN (08:58)
[2019-07-07] MEDS ORDERED: Acetaminophen 500 MG TAB PO PRN (08:58)
[2019-07-07] MEDS ORDERED: Carboprost 250 MCG/ML AMP IM PRN (08:58)
[2019-07-07] MEDS ORDERED: Lidocaine 1% (PF) 30 ML VIAL SC PRN (08:58)
[2019-07-07] MEDS ORDERED: Methylergonovine 0.2 MG/ML VIAL IM PRN (08:58)
[2019-07-07] MEDS ORDERED: Ondansetron PF 4 MG/2 ML Vial IVP PRN ×3 (08:58→18:56)
[2019-07-07] MEDS ORDERED: Diphenoxylate HCl/Atropine Tablet PO PRN (08:58)
[2019-07-07] MEDS ORDERED: NS w/ Oxytocin 10 units 500 ML IV SCH (08:58)
[2019-07-07] MEDS ORDERED: Ibuprofen 800 MG TAB PO PRN (08:58)
[2019-07-07 09:13] LABS: Hemoglobin 11.2 g/dL (12.0-16.0); Mean Corpuscular HGB CONC 33.4 g/dL (32.0-36.0); Mean Corpuscular Hemoglobin 26.6 pg (27.0-31.0); Mean Corpuscular Volume 79.6 fL (78.0-98.0); Mean Platelet Volume 10.2 fL (7.4-10.4); Platelet Count 226 thou/uL (130-400); RBC Distribution Width 13.4 % (11.5-14.5); White Blood Cell (WBC) Count 14.7 thou/uL (4.8-10.8)
[2019-07-07] MEDS ORDERED: ePHEDrine/0.9% NaCl/PF SYRINGE 50 mg/10 ml ONE (09:39)
[2019-07-07] MEDS ORDERED: Lidocaine 2% MPF 10 ML AMP (For Epidural Use) ONE (09:39)
[2019-07-07 09:40] VITALS: BMI 31.8
[2019-07-07 09:56] LABS: HBSAg Index 0.21 S/CO (0-0.99); Hep B Surf Ag Non-Reactive S/CO (NonReactive); Syphilis Antibody Nonreactive (Nonreactive); Syphilis Antibody Index 0.11 S/CO (<1.00 Non-Reactive)
[2019-07-07] MEDS ORDERED: Fentanyl 4 mcg/Bup 0.1% Cadd 100 ML ONE (13:32)
[2019-07-07] MEDS ORDERED: Acetaminophen 325 MG TAB PO PRN (14:54)
[2019-07-07] MEDS ORDERED: Lactated Ringer's 500 ML IV PRN (14:54)
[2019-07-07] MEDS ORDERED: Naloxone HCl 0.4 mg/ml Vial IVP PRN ×2 (14:54)
[2019-07-07] MEDS ORDERED: diphenhydrAMINE 50 MG/ML VIAL IVP PRN (14:54)
[2019-07-07] MEDS ORDERED: ePHEDrine/0.9% NaCl/PF SYRINGE 50 mg/10 ml SLOW IVP PRN (14:54)
[2019-07-07] MEDS ORDERED: Fentanyl 4 mcg/Bupivacaine 0.1% Cassette 100 ML EPIDURAL SCH (15:00)
[2019-07-07] MEDS ORDERED: Communication Order-Pharmacy FS SCH (15:00)
--- NOTE | 2019-07-07 15:05 | PDOC.LDHP ---
Labor and Delivery H&P Chief complaint: scheduled induction HPI: 23yo at 39w0d by LMP here for elective IOL. No complaints. Current gestational age (weeks): 39 Due date: 07/14/19 Dating criteria: last menstrual period Grav: 2 Para: 1 Current complications: none Abnormal US findings: No Past Medical History: denies Current medications: pre-raghav vitamins Previous surgical history: none Allergies/Adverse Reactions: Allergies Allergy/AdvReac Type Severity Reaction Status Date / Time morphine Allergy Severe Anaphylaxis Verified 07/07/19 09:39 butorphanol [From Stadol] Allergy Verified 07/07/19 09:39 Social history: none - Physical Exam Vital signs reviewed and normal: yes General: NAD Heart: RRR Lungs: CTAB Abdomen: gravid Extremeties: no edema FHT: category 1 [place] contractions every: 3min - Vaginal Exam cm dilated: 3 Effacement: 25% Station: -3 (arom clear) - OB Labs Blood type: O RH: negative Antibody Screen: negative HIV: negative RPR: negative HEPSAg: negative 1 hour GCT: negative GBS: negative Urine drug screen: negative Rubella: immune - Assessment L&D Assessment: elective induction at term - Plan Plan: admit to L&D, labor augmentation if indicated, informed consent obtained, anesthesia consult for pain management
--- NOTE | 2019-07-07 16:53 | PDOC.OPDEL ---
OB Operative/Delivery Note Delivery Dr/Surgeon: Donna Assist: n/a Pre-Delivery Diagnosis: elective induction Procedure/Post Delivery Dx: spontaneous vaginal delivery Weeks gestation: 39 Anesthesia: epidural - Findings A Sex: female - 1 min: 8 - 5 min: 9 - Additional Findings/Plan Placenta delivered: spontaneous Repaired Obstetrical Laceration: none Estimated blood loss: 300 Compilations/Other Findings: NC x 1 reduced at perineum Post delivery plan: routine recovery
[2019-07-07] MEDS ORDERED: Preparation H Ointment 57 gram tube RC PRN (18:56)
[2019-07-07] MEDS ORDERED: Lanolin Ointment 7 GM TUBE TOP PRN (18:56)
[2019-07-07] MEDS ORDERED: NS / Oxytocin 40 units/1000ml 1,000 ML IV SCH (18:56)
[2019-07-07] MEDS ORDERED: Bisacodyl 10 MG SUPP PR PRN (18:56)
[2019-07-07] MEDS ORDERED: Milk Of Magnesia 30 ML UDCUP PO PRN (18:56)
[2019-07-07] MEDS ORDERED: Zolpidem Tartrate 5 MG TAB PO PRN (18:56)
[2019-07-07] MEDS ORDERED: Benzocaine-Menthol 82.5 ML CAN TOP PRN (18:56)
[2019-07-07] MEDS ORDERED: diphenhydrAMINE 25 MG CAP PO PRN (18:56)
[2019-07-07] MEDS ORDERED: Ferrous Sulfate 325 MG TAB PO SCH (19:15)
[2019-07-07] MEDS: Ibuprofen 800 MG TAB PO SCH (20:36)
[2019-07-07] MEDS: Docusate Calcium (SURFAK) 240 MG CAP PO SCH (20:36)
--- NOTE | 2019-07-08 07:17 | PDOC.PP ---
Post Progress Note Post Day #: 1 Subjective: NAEO. Doing well, no concerns. PO intake tolerated: yes Flatus: yes Ambulation: yes Weight Weight 92.079 kg - Physical Examination General: NAD Respiratory: clear to auscultation bilaterally, non-labored breathing Abdominal: appropriately TTP Psychiatric: A&Ox3, normal affect Result Diagrams: 07/07/19 09:01 Additional Labs: Post Labs Blood Type O NEGATIVE 07/07/19 09:01 Hep Bs Antigen Non-Reactive S/CO (NonReactive) 07/07/19 09:01 - Assessment/Plan s/p , PPD #1 #1. s/p term , PPD #1 -Doing well, pain controlled -No concerns #2. Rh- -Rhogam ordered Dispo: D/c pending baby d/c
[2019-07-08] MEDS ORDERED: Adacel (T-DAP) 0.5 ML SYRINGE IM ONE (09:00)
[2019-07-08] MEDS: Prenatal Vitamin 1 TAB PO SCH (11:44)
[2019-07-08] MEDS: Ibuprofen 800 MG TAB PO SCH ×3 (11:44→22:02)
[2019-07-08] MEDS: Ferrous Sulfate 325 MG TAB PO SCH ×2 (11:44→16:39)
[2019-07-08] MEDS: Docusate Calcium (SURFAK) 240 MG CAP PO SCH ×2 (11:44→22:02)
[2019-07-09] MEDS: Ibuprofen 800 MG TAB PO SCH ×2 (06:15→13:24)
[2019-07-09 08:19] VITALS: BP 119/76; TEMP 98.2
[2019-07-09] MEDS: Ferrous Sulfate 325 MG TAB PO SCH (08:40)
[2019-07-09] MEDS: Prenatal Vitamin 1 TAB PO SCH (09:22)
[2019-07-09] MEDS: Docusate Calcium (SURFAK) 240 MG CAP PO SCH (09:22)
--- NOTE | 2019-07-09 09:55 | PDOC.PP ---
Post Progress Note Post Day #: 2 PO intake tolerated: yes Flatus: yes Ambulation: yes Vital Signs (12 hours) Temp Pulse Resp BP Pulse Ox 07/09/19 08:19 98.2 F 79 20 119/76 98 07/09/19 07:45 98 Weight Weight 203 lb - Physical Examination General: NAD Respiratory: non-labored breathing Abdominal: no distention, appropriately TTP Fundus firm & at: umb-2 Neurological: no gross focal deficits Psychiatric: normal affect Result Diagrams: 07/07/19 09:01 Additional Labs: Post Labs Blood Type O NEGATIVE 07/07/19 09:01 Hep Bs Antigen Non-Reactive S/CO (NonReactive) 07/07/19 09:01 - Assessment/Plan PPD2 s/p TSVD VSSAF No issues , bleeding appropriate Rh neg s/p rhogam, RImm DC home FU 6 w
== END 2019-07-09 14:00 | disposition home or self-care (01) | DRG 807 ==
LOC: L&D 07:57 → 3SW 07-08 15:16
PROVIDERS: ADMIT Student in an Organized Health Care Education/Training Program; ATTEND Student in an Organized Health Care Education/Training Program
PROC: 10E0XZZ Delivery of Products of Conception, External Approach (ICD-10-PCS; principal; 2019-07-07)
PROC: 10907ZC Drainage of Amniotic Fluid, Therapeutic from Products of Conception, Via Natural or Artificial Opening (ICD-10-PCS; 2019-07-07)
PROC: 3E0334Z Introduction of Serum, Toxoid and Vaccine into Peripheral Vein, Percutaneous Approach (ICD-10-PCS; 2019-07-07)
DX: O69.81X0 Labor and delivery complicated by cord around neck, without compression, not applicable or unspecified (principal); Z23 Encounter for immunization; Z37.0 Single live birth; Z3A.39 39 weeks gestation of pregnancy; Z88.5 Allergy status to narcotic agent; Z88.8 Allergy status to other drugs, medicaments and biological substances; O26.893 Other specified pregnancy related conditions, third trimester; Z67.41 Type O blood, Rh negative
CPT/HCPCS: 36415; 51702; 85027; 85461; 86780; 86850; 86900; 86901; 87340; 90384; 96372; J2001; J2590

== ENCOUNTER 2022-09-14 08:42 | Outpatient (CLI) | payer BC, OTHER | END 2022-09-14 08:43 | disposition home or self-care (01) | LOC: CT 08:42 | PROVIDERS: ATTEND Ophthalmology | DX: J01.90 Acute sinusitis, unspecified (principal); J32.0 Chronic maxillary sinusitis; J34.2 Deviated nasal septum ==